=== PATIENT | female | born 2000 | race Two or more races ===

== ENCOUNTER 2024-08-10 16:00 | Outpatient (RCR) | payer MEDICAID, SELFPAY ==
--- NOTE | 2024-08-04 13:13 | PT.OIERPT ---
PT OP Initial Eval Patient Information Outpatient Physical Therapy Treatment Date: 08/04/24 Visit Reasons: BACK PAIN Medical Diagnosis: M54.9 Treatment Dx #1: LBP with radiculopathy Start of Care: 08/04/24 Date of Onset: 5 months ago Smoking Status Smoking Status: Never smoker Initial Assessment Subjective: Pt is 23 yr old female who reports LBP that runs down the L LE when she bends forward sometimes the leg cramps or locks up and she has difficulty moving it. Increased pain with prolonged standing and bending to lift. PMH: High cholesterol Imaging: none Pt goal: to get rid of the pain Objective: ? Trunk ArOM: ? B SB 50% of normal with pain ? Extension: 20% with pain around L4-5, L5-S1 ? Flexion: 5 from floor with LBP ? B rotation: 60% with pain ? R SLR ROM: 45 deg. L SLR: 50 deg with posterior knee neural tension, LBP ? TTP: moderate paraspinals L5-S1 ? Neuro: L SLR: positive Assessment: Pt presents with trunk flexion sensitivity and overlying myofascial pain ? and TTP around L5-S1 consistent with ? lower lumbar disc bulge(s) and L LE radiculopathy. Pt requires skilled therapy in order to decrease ? pain and improve standing tolerance and has fair rehab potential. Eval ?followed by [facility] printout. [employer] and [employer] Goals 1. Ind with [facility] ? 2. Improved standing tolerance to 3 hours with <=4/10 LBP in order to work ? 3. Decreased lower paraspinal TTP from mod to min 4. Improved HH chore tolerance to at least 60 minutes with <=3/10 LBP and no ?increase in LE ssx ? Treatment Plan 1. Manual therapy ? 2. Therex ? 3. Modalities as indicated, moist heat, ice, estim, mechanical traction Frequency and Duration: 1-2x a week for 12 sessions plus the evaluation Certification Dates: 08/04/24 to 11/02/24 Procedure Charges OP PT Eval Mod Complex 30 minutes: Yes
--- NOTE | 2024-08-10 18:03 | PT.ODAYNRPT ---
PT Outpatient Daily Note OP Daily Note Outpatient Physical Therapy Treatment Date: 08/10/24 Visit Reasons: BACK PAIN Subjective: Same as time of evaluation Objective: See F/S for therex MT: STM L/S x7' Mechanical traction x7' at 35 lbs Assessment: SSx consistent with lumbar disk bulge with L LE radiculopathy. Good response to prone extension to relieve LBP. Plan: Continue per POC Length of Time (minutes) of Treatment: 30 Minutes Procedure Charges Therapeutic Exercise 30 minutes: Yes
== END 2024-08-10 23:59 | disposition home or self-care (01) ==
LOC: CPTX 16:00
PROVIDERS: PCP Family Medicine; Referring Provider Family Medicine; Visit Provider Family Medicine
DX: M54.16 Radiculopathy, lumbar region (principal)
CPT/HCPCS: 97110; 97162

== ENCOUNTER 2024-08-31 10:30 | Outpatient (RCR) | payer MEDICAID, SELFPAY ==
--- NOTE | 2024-08-13 12:50 | PT.ODAYNRPT ---
PT Outpatient Daily Note OP Daily Note Outpatient Physical Therapy Treatment Date: 08/13/24 Visit Reasons: back pain Subjective: Less LBP after last visit Objective: See F/S for therex Mechanical traction x7' at 35 lbs Assessment: SSx consistent with lumbar disk bulge with L LE radiculopathy. Good response to prone extension to relieve LBP. Plan: Continue per POC Length of Time (minutes) of Treatment: 30 Minutes Procedure Charges Therapeutic Exercise 30 minutes: Yes
--- NOTE | 2024-08-24 11:44 | PT.ODAYNRPT ---
PT Outpatient Daily Note OP Daily Note Outpatient Physical Therapy Treatment Date: 08/24/24 Visit Reasons: back pain Subjective: Less LBP after last visit Objective: See F/S for therex MT: STM L/S x5' with flexbar Assessment: Ssx consistent with lumbar disk bulge with L LE radiculopathy. Good response to prone extension to relieve LBP. Plan: Continue per POC Length of Time (minutes) of Treatment: 30 Minutes Procedure Charges Therapeutic Exercise 30 minutes: Yes
--- NOTE | 2024-08-27 11:45 | PT.ODAYNRPT ---
PT Outpatient Daily Note OP Daily Note Outpatient Physical Therapy Treatment Date: 08/27/24 Visit Reasons: back pain Subjective: Less LBP after last visit Objective: See F/S for therex MT: STM L/S x5' with flexbar. Mechanical traction LS x7' at 35 lbs Assessment: Ssx consistent with lumbar disk bulge with L LE radiculopathy. Good response to prone extension to relieve LBP. Plan: Continue per POC Length of Time (minutes) of Treatment: 30 Minutes Procedure Charges Therapeutic Exercise 30 minutes: Yes
--- NOTE | 2024-08-31 12:52 | PT.ODAYNRPT ---
PT Outpatient Daily Note OP Daily Note Outpatient Physical Therapy Treatment Date: 08/31/24 Visit Reasons: back pain Subjective: Less LBP after last visit Objective: See F/S for therex MT: STM L/S x5' with flexbar. Assessment: Ssx consistent with lumbar disk bulge with L LE radiculopathy. Good response to prone extension to relieve LBP. Good demo of lumbar stabilization therex. Plan: Continue per POC Length of Time (minutes) of Treatment: 30 Minutes Procedure Charges Therapeutic Exercise 30 minutes: Yes
== END 2024-09-10 23:59 | disposition home or self-care (01) ==
LOC: CPTX 10:30
PROVIDERS: PCP Family Medicine; Referring Provider Family Medicine; Visit Provider Family Medicine
DX: M54.16 Radiculopathy, lumbar region (principal)
CPT/HCPCS: 97110